=== PATIENT | male | born 1960 | race African-American/Black ===

== ENCOUNTER 2018-03-27 16:53 | Emergency (ER) | payer MEDICAID ==
[~2018-03-27] VITALS: Ht 180.3 cm; Wt 80.0 kg
[2018-03-27] MEDS ORDERED: MORPHINE SULFATE 4 MG/ML CPJ (NOT FOR IM USE) IV STA (17:18)
[2018-03-27] MEDS ORDERED: SODIUM CHLORIDE 0.9% 1,000 ML IV ONE (17:18)
[2018-03-27] MEDS ORDERED: ONDANSETRON HCL 4MG/2ML INJ IV STA (17:18)
[2018-03-27] MEDS ORDERED: LIDOCAINE 1%/EPI 1:100,000 10 ML VIAL IJ ONE ×2 (17:30→19:30)
[2018-03-27] MEDS ORDERED: TETANUS, DIPHTHERIA, PERTUSSIS VAC/PF 0.5ML (>7YR OLD) IM ONE (17:30)
[2018-03-27] MEDS ORDERED: BACITRACIN ZINC OINT UDPKT TOP ONE (17:30)
[2018-03-27 17:59] LABS: BASOPHILS % 0.5 % (0.0-2.0); EOSINOPHILS % 2.1 % (0.0-5.0); HEMATOCRIT. 40.6 % (42.0-52.0); HEMOGLOBIN. 13.9 g/dL (14.0-18.0); LYMPHOCYTES % 26.1 % (20.0-50.0); MEAN CORPUSCULAR HEMOGLOBIN 33.7 pg (28.0-32.0); MEAN CORPUSCULAR VOLUME 98.4 fL (80.0-94.0); MEAN PLATELET VOLUME 8.6 fl (7.4-10.4); MONOCYTES % 10.5 % (2.0-8.0); NEUTROPHILS % 60.8 % (40.0-76.0); PLATELET 246 x1000/uL (130-400); RED BLOOD CELL COUNT 4.12 mill/uL (4.7-6.1); RED CELL DISTRIBUTION WIDTH 14.2 % (11.6-14.6)
[2018-03-27 18:04] LABS: CHLORIDE 109 mEq/L (98-107); INR 1.1; PARTIAL THROMBOPLASTIN TIME 27.3 sec (23.4-31.0); PROTHROMBIN TIME 10.7 sec (9.1-11.1)
[2018-03-27 18:05] LABS: ETHANOL BLOOD < 10 mg/dL
[2018-03-27] MEDS ORDERED: LIDOCAINE HCL/PF 1% 10 MG/ML 5ML VIAL IJ ONE (19:30)
[2018-03-27] MEDS ORDERED: CEFAZOLIN 1000MG PREMIX 50 ML IV ONE (20:30)
[2018-03-28 10:41] VITALS: BP 125/82
== END 2018-03-28 10:56 | disposition home or self-care (01) ==
LOC: ER 17:14
DX: S01.81XA Laceration without foreign body of other part of head, initial encounter (principal); S00.11XA Contusion of right eyelid and periocular area, initial encounter; Y04.0XXA Assault by unarmed brawl or fight, initial encounter; Y93.89 Activity, other specified; Y92.89 Other specified places as the place of occurrence of the external cause
CPT/HCPCS: 12011; 36415; 70450; 80053; 84484; 85025; 85610; 85730; 90471; 90715; 96365; 96375; 99285; G0482; J0690; J2270; J2405; J3490; J7030